=== PATIENT | female | born 1960 | race Two or more races ===

== ENCOUNTER → 2017-04-18 | Emergency (ER) | payer OTHER ==
[~2017-04-18] VITALS: Ht 165.1 cm; Wt 84.4 kg
[~2017-04-18] MED LIST: BENICAR20 MG PO; CRESTOR10 MG; GLUCOPHAGE XR750 MG PO; MUPIROCIN15 GM TP; SYNTHROID100 MCG PO; TENORMIN25 MG PO; TUSSI PRES-B L120 M1 PO; VASOTEC10 MG NGT; ZITHROMAX TRI-500 MG PO
== END | disposition home or self-care (01) ==
LOC: ER 08:21
DX: B34.9 Viral infection, unspecified (principal)

== ENCOUNTER → 2017-05-23 | Emergency (ER) | payer OTHER ==
[~2017-05-23] VITALS: Ht 165.1 cm; Wt 83.9 kg
== END | disposition home or self-care (01) ==
LOC: ER 09:52
DX: R42 Dizziness and giddiness (principal); J32.8 Other chronic sinusitis

== ENCOUNTER 2017-06-18 11:47 | Emergency (ER) | payer OTHER ==
[~2017-06-18] VITALS: Ht 167.6 cm; Wt 83.0 kg
== END 2017-06-18 13:52 | disposition home or self-care (01) ==
LOC: ER 11:47
DX: N39.0 Urinary tract infection, site not specified (principal)

== ENCOUNTER 2019-03-01 05:30 | Emergency (ER) | payer OTHER ==
[~2019-03-01] VITALS: Ht 160 cm; Wt 79.4 kg
== END 2019-03-01 09:14 | disposition home or self-care (01) ==
LOC: ER 05:30
DX: J22 Unspecified acute lower respiratory infection (principal)

== ENCOUNTER 2019-05-21 05:06 | Emergency (ER) | payer OTHER ==
[~2019-05-21] VITALS: Ht 160 cm; Wt 80.7 kg
[2019-05-21] MEDS ORDERED: GLUMETZA500 MG (05:39)
[2019-05-21] MEDS ORDERED: SYNTHROID137 MCG (05:40)
[2019-05-21] MEDS ORDERED: KETO10TA2 PO (06:34)
[2019-05-21] MEDS ORDERED: ORPHENADRINE C100 MG PO (06:34)
== END 2019-05-21 06:36 | disposition home or self-care (01) ==
LOC: ER 05:06
DX: M54.2 Cervicalgia (principal)

== ENCOUNTER 2024-03-30 14:16 | Emergency (ER) | payer OTHER ==
[~2024-03-30] VITALS: Ht 160 cm; Wt 73.0 kg
[~2024-03-30 14:16] MED LIST changes: +GLUMETZA500 MG; +KETO10TA2 PO; +ORPHENADRINE C100 MG PO; +SYNTHROID137 MCG
[2024-03-30] MEDS ORDERED: NORVASC2.5 MG PO (14:37)
[2024-03-30] MEDS ORDERED: FAMOTIDINE/PF 20 MG/2 ML VIAL IV ONE (16:30)
[2024-03-30] MEDS ORDERED: ONDANSETRON HCL 2 MG/ML VIAL IV ONE (16:30)
[2024-03-30] MEDS ORDERED: FAMOTIDINE/PF 20 MG/2 ML VIAL ONE (16:45)
[2024-03-30] MEDS ORDERED: ONDANSETRON HCL 2 MG/ML VIAL ONE (16:45)
[2024-03-30 17:09] LABS: HEMATOCRIT 46.6 % (36.0-45.00); HEMOGLOBIN 15.2 g/dL (12.0-15.00); MEAN CELL VOLUME 87.2 fL (80.00-100.00); MEAN CORPUSCULAR HEMOGLOBIN 28.4 pg (27.00-32.0); MEAN CORPUSCULAR HGB CONC 32.6 g/dl (32.0-36.0); PLATELET COUNT 332 K/uL (150-450); RED BLOOD COUNT 5.34 M/uL (4.00-6.00); RED CELL DISTRIBUTION WIDTH 13.7 % (11.5-14.5)
[2024-03-30 17:37] LABS: BILIRUBIN TOTAL 1.14 mg/dL (0.3-1.2); CALCIUM 9.6 mg/dL (8.5-10.1); CREATININE SERUM 0.7 mg/dL (0.55-1.02); GFR 84.51; GLOBULINA 3.6 G/DL (2.4-3.5); POTASSIUM 3.65 mEq/L (3.5-5.1); TOTAL PROTEIN 7.6 gm/dL (6.4-8.2)
[2024-03-30 17:47] LABS: URINE APPEARANCE Clear; URINE BILIRRUBIN Negative (NEGATIVE); URINE BLOOD Negative; URINE COLOR Yellow; URINE GLUCOSE Negative (NEGATIVE); URINE KETONE 15 (NEGATIVE); URINE LEUKOCYTE Small; URINE NITRATE Negative; URINE PROTEIN Negative (NEGATIVE); URINE UROBILINOGEN 0.2 E.U./dl
[2024-03-30 17:51] LABS: URINE BACTERIA 100.3 uL (0.0-1933); URINE EPITHELIAL CELLS 23.4 uL (0.0-38.8); URINE RBC 27.8 uL (0.0-20.8); URINE WBC 81.5 uL (0.0-23.2)
[2024-03-30] MEDS ORDERED: 0.9 % SODIUM CHLORIDE 500 ML IV ONE (18:00)
[2024-03-30 20:57] LABS: MEAN CELL VOLUME 86.5 fL (80.00-100.00); MEAN CORPUSCULAR HEMOGLOBIN 28.8 pg (27.00-32.0); MEAN CORPUSCULAR HGB CONC 33.3 g/dl (32.0-36.0); PLATELET COUNT 301 K/uL (150-450); RED BLOOD COUNT 4.86 M/uL (4.00-6.00); RED CELL DISTRIBUTION WIDTH 14.2 % (11.5-14.5)
[2024-03-30] MEDS ORDERED: PEPCID AC20 MG PO (21:23)
[2024-03-30] MEDS ORDERED: CEPHALEXIN500 MG PO (21:23)
[2024-03-30] MEDS ORDERED: CEFTRIAXONE SODIUM 1,000 MG VIAL IM ONE (21:30)
[2024-03-30] MEDS ORDERED: CEFTRIAXONE SODIUM 1,000 MG VIAL ONE (21:31)
== END 2024-03-30 21:34 ==
LOC: ER 14:18
PROVIDERS: General Practice
DX: R10.13 Epigastric pain (principal); E11.9 Type 2 diabetes mellitus without complications; Z79.84 Long term (current) use of oral hypoglycemic drugs; I10 Essential (primary) hypertension; E03.9 Hypothyroidism, unspecified

== ENCOUNTER 2025-03-26 07:03 | Outpatient (CLI) | payer OTHER ==
[~2025-03-26 07:03] MED LIST changes: +CEPHALEXIN500 MG PO; +NORVASC2.5 MG PO; +PEPCID AC20 MG PO
== END 2025-03-26 07:04 | disposition home or self-care (01) ==
LOC: TOM 07:03
PROVIDERS: ATTEND Internal Medicine Gastroenterology
DX: R10.13 Epigastric pain (principal)